=== PATIENT | female | born 1945 | race Caucasian/White ===

== ENCOUNTER 2019-11-06 14:44 | Emergency (ER) | payer MEDICARE, SELFPAY ==
--- NOTE | ~2019-11-06 | CT_ITS ---
EXAMINATION: CT brain wo [facility] EXAM DATE: 11/06/2019 17:32 INDICATION: Dizziness. TECHNIQUE: Spiral CT of the head was performed without contrast. Axial, coronal and sagittal images were reviewed. The dose-length product (DLP) for this examination was 605.33 mGy-cm. The exposure w as tailored according to patient size, and iterative reconstruction (ASIR) was used as additional dos e reduction technique. Comparison is made to prior examination from 01/06/2005. FINDINGS: Again there is moderate-sized left frontal region of encephalomalacia from prior insult. Th ere is overlying craniotomy. Mild microangiopathy and moderate cerebral atrophy. No obstructive hydro cephalus, extra-axial collections, acute intraparenchymal hemorrhage, mass or evidence of acute infar ction. There is mild to moderate ethmoid mucoperiosteal thickening. IMPRESSION: 1. Moderate-sized left frontal encephalomalacia. 2. Chronic age related findings. Reviewed, dictated and finalized at location A.
--- NOTE | ~2019-11-06 | XR_ITS ---
EXAMINATION: XR shoulder RT min 2V EXAM DATE: 11/06/2019 17:49 INDICATION: Fell one week ago, right shoulder anterior bruising. Limited range of motion. TECHNIQUE: The following right shoulder projections obtained: frontal projection with internal rotati on, frontal projection with external rotation, Grashey, and scapular Y view (4+ views). Comparison is made to prior examination from 03/22/2014. FINDINGS: There is acute closed posttraumatic fracture distal aspect of the right clavicle. Only mini mal displacement, near-anatomic alignment. There is an old right humeral neck fracture, has healed. N o dislocation. The soft tissue is unremarkable. IMPRESSION: 1. Acute right distal clavicular fracture. Reviewed, dictated and finalized at location A.
[2019-11-06 14:53] VITALS: BP 160/92; PULSE 85; RESP 18; TEMP 37.2; O2SAT 97
--- NOTE | 2019-11-06 14:59 | ECG_ITS ---
Measurements Intervals [place] Rate: 84 P: 85 IN: 111 QRS: 70 QRSD: 70 T: 75 QT: 364 QTc: 432 Interpretive Statements SINUS RHYTHM WITH SHORT IN INTERVAL POSSIBLE LEFT ATRIAL ENLARGEMENT BORDERLINE ST-T WAVE ABNORMALITY- DIFFUSE LEADS BASELINE ARTIFACT- I, II, III, AVR, AVL, AVF BORDERLINE ECG Electronically Signed On 11-06-2019 15:15:47 CDT by Josue Souza D.O.
[2019-11-06 15:18] LABS: Basophils Percent Auto 0.3 % (0.2-1.2); Eosinophils Absolute Auto 0.1 K/mm3 (0-0.3); Hemoglobin 15.9 g/dL (12.0-15.0); Immature Granulocyte Absolute 0.05 K/mm3 (0.00-0.031); Immature Granulocyte Percent A 0.5 % (0-0.5); Lymphocytes Absolute Auto 1.44 K/mm3 (0.9-3.2); Lymphocytes Percent Auto 14.7 % (18.3-44.2); Mean Corpuscular HGB Conc 33.1 g/dl (32-36); Mean Corpuscular Hemoglobin 31.5 pg (26-34); Mean Corpuscular Volume 95.2 fl (80-100); Mean Platelet Volume 10.7 fl (7.4-10.4); Monocytes Absolute Auto 0.7 K/mm3 (0.1-0.6); Monocytes Percent Auto 7.2 % (2.6-8.5); Neutrophils Absolute Auto 7.5 K/mm3 (1.3-6.7); Neutrophils Percent Auto 76.3 % (45.5-73.1); Platelet Count Result 214 k/mm3 (150-375); Red Blood Count 5.04 M/mm3 (4.2-5.4); Red Cell Distribution Width 13.5 % (11.5-14.5); White Blood Count 9.8 K/mm3 (4.5-10.0)
[2019-11-06 15:30] LABS: Anion Gap 8 mmol/L (8-16); Blood Urea Nitrogen 14 mg/dL (7-17); Calcium 10.3 mg/dL (8.4-10.2); Carbon Dioxide 26 mmol/L (22-30); Chloride 104 mmol/L (98-107); Estimated CRCL calculation 70 ml/min; Estimated Glomerular Filt Rate > 60; Glucose 130 mg/dL (65-105); Potassium 4.1 mmol/L (3.4-5.0); Sodium 138 mmol/L (137-145)
[2019-11-06 17:58] VITALS: BP 184/86; PULSE 81; RESP 18; O2SAT 100
[2019-11-06] MEDS: MECLIZINE HCL 25 MG TABLET PO (17:58)
--- NOTE | 2019-11-06 18:40 | ED.DIZZY ---
HPI - Dizziness General Chief Complaint: Dizziness Stated Complaint: dizziness, n/v Time Seen by Provider: 11/06/19 16:27 History of Present Illness HPI Narrative: Patient is a 74-year-old female who presents the ER with dizziness. Symptoms began last week. She was walking felt intense dizziness and felt against a wall striking her shoulder. The dizziness then subsided. She has had it recur a couple of times over the last week. It occurred worse today so she came in with her to be evaluated. Unsure if it is worse with going from sitting to standing or when turning her head. Cannot describe rotational nature or just unsteadiness. 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 Related Data Allergies Allergy/AdvReac Type Severity Reaction Status Date / Time codeine Allergy Unknown Unknown Verified 10/22/19 11:43 Review of Systems Review of Systems: ROS unobtainable: Yes unobtainable due to medical condition (Deafness) Constitutional: Constitutional: Denies chills, Denies fever(s) and Denies weakness ENT: Reports vertigo, Reports dizziness, Denies nasal congestion and Denies sore throat Cardiovascular: Cardiovascular: Denies chest pain and Denies rapid heart rate Respiratory: Respiratory: Denies cough and Denies dyspnea Gastrointestinal: Gastrointestinal: Denies abdominal pain, Denies diarrhea, Reports nausea and Denies vomiting PMFSH Past Medical History Medical History (Updated 11/06/19 @ 18:48 by Herber Lord MD) Fracture closed, femur, shaft (~02/2014) History of hemorrhagic stroke with residual hemiparesis Hypertension Hyperthyroidism Osteoporosis Right hemiparesis (~1979) Seizure disorder (~2004) Shoulder fracture Skin cancer Family History Family History (Updated 10/21/15 @ 23:19 by DOCTOR UNKNOWN) Father Family history of diabetes mellitus in first degree relative Sibling Family history of diabetes mellitus in first degree relative Mother Family history of coronary artery disease Family history of malignant neoplasm of kidney Other Cerebrovascular accident Family history of blood dyscrasia Family history of hearing loss Hypertension Social History Social History Smoking status: Current every day smoker Smoking end date: 03/25/86 Alcohol intake: never Exam Narrative: Exam Narrative: GENERAL: Well-appearing, well-nourished, and in no acute distress. HEAD: Normocephalic, atraumatic. EYES/EARS: PERRL and EOMI. Normal TM's w/o cerumen impaction CHEST: Clear to auscultation. No respiratory distress. HEART: Regular rate and rhythm. Normal peripheral pulses. EXTREMITIES: Normal range of motion. No edema. No tenderness over the clavicle or shoulder. Contracture of the right upper extremity. SKIN: Warm, dry, large amount of old bruising to right shoulder over the clavicle extending down to the anterior chest. NEURO: Alert and oriented x3. At neurologic baseline per . Mild slurred speech. PSYCH: Normal mood and affect. Course Course Emergency Course: Patient feels much better after receiving meclizine. Informed of results of x-ray of shoulder. Declined sling Vital Signs Vital signs: Vital Signs Temperature 98.9 F 11/06/19 14:53 Pulse Rate 85 11/06/19 14:53 Respiratory Rate 18 11/06/19 14:53 Blood Pressure 160/92 H 11/06/19 14:53 Pulse Oximetry 97 11/06/19 14:53 Temperature 98.9 F 11/06/19 14:53 Pulse Rate 81 11/06/19 17:58 Respiratory Rate 18 11/06/19 17:58 Blood Pressure 184/86 H 11/06/19 17:58 Pulse Oximetry 100 11/06/19 17:58 MDM - Dizziness Lab Data Result diagrams: 11/06/19 15:02 11/06/19 15:02 Labs: Lab Results 11/06/19 11/06/19 Range/Units 15:02 15:02 WBC 9.8 (4.5-10.0) K/mm3 RBC 5.04 (4.2-5.4) M/mm3 Hgb 15.9 H (12.0-15.0) g/dL Hct 48.0 H (37.0-47.0) % MCV
[2019-11-06 19:08] VITALS: BP 151/92; PULSE 85; RESP 14; TEMP 36.8; O2SAT 94
== END 2019-11-06 19:10 | disposition home or self-care (01) ==
PROVIDERS: Emergency Provider Emergency Medicine
DX: R42 Dizziness and giddiness (principal); S42.031A Displaced fracture of lateral end of right clavicle, initial encounter for closed fracture; I10 Essential (primary) hypertension; E03.9 Hypothyroidism, unspecified; M81.0 Age-related osteoporosis without current pathological fracture; Z85.828 Personal history of other malignant neoplasm of skin; I69.951 Hemiplegia and hemiparesis following unspecified cerebrovascular disease affecting right dominant side; Z87.891 Personal history of nicotine dependence; R94.31 Abnormal electrocardiogram [ECG] [EKG]; W01.198A Fall on same level from slipping, tripping and stumbling with subsequent striking against other object, initial encounter
CPT/HCPCS: 36415; 70450; 73030; 80048; 85025; 93005; 99284; A9270

== ENCOUNTER 2020-10-18 10:34 | Outpatient (CLI) | payer MEDICARE, SELFPAY ==
[2020-10-18 16:46] LABS: Basophils Percent Auto 0.4 % (0.2-1.2); Eosinophils Absolute Auto 0.2 K/mm3 (0-0.3); Eosinophils Percent Auto 2.6 % (0-4.4); Hematocrit 46.3 % (37.0-47.0); Immature Granulocyte Absolute 0.02 K/mm3 (0.00-0.031); Immature Granulocyte Percent A 0.3 % (0-0.5); Lymphocytes Absolute Auto 1.76 K/mm3 (0.9-3.2); Lymphocytes Percent Auto 25.8 % (18.3-44.2); Mean Corpuscular HGB Conc 32.4 g/dl (32-36); Mean Corpuscular Hemoglobin 31.3 pg (26-34); Mean Corpuscular Volume 96.5 fl (80-100); Mean Platelet Volume 11.4 fl (7.4-10.4); Monocytes Absolute Auto 0.7 K/mm3 (0.1-0.6); Neutrophils Absolute Auto 4.1 K/mm3 (1.3-6.7); Neutrophils Percent Auto 60.9 % (45.5-73.1); Platelet Count Result 208 k/mm3 (150-375); White Blood Count 6.8 K/mm3 (4.5-10.0)
[2020-10-18 17:02] LABS: Hemoglobin A1C 5.5 % (<5.7)
[2020-10-18 17:04] LABS: Alanine Aminotransferase 15 U/L (4-35); Albumin Level 4.3 g/dL (3.5-5.1); Alkaline Phosphatase 94 U/L (38-126); Anion Gap 10 mmol/L (8-16); Aspartate Amino Transferase 24 U/L (14-36); Bilirubin,Total 0.7 mg/dL (0.2-1.3); Blood Urea Nitrogen 15 mg/dL (7-17); Calcium 9.6 mg/dL (8.4-10.2); Carbon Dioxide 25 mmol/L (22-30); Chloride 105 mmol/L (98-107); Cholesterol 217 mg/dL (0-200); Estimated Glomerular Filt Rate > 60; Glucose 98 mg/dL (65-110); HDL Direct 54 mg/dL; Potassium 4.1 mmol/L (3.4-5.0); Sodium 140 mmol/L (137-145); Triglycerides 142 mg/dL (<150)
[2020-10-18 17:07] LABS: Phosphorus 3.2 mg/dL (2.5-4.5)
[2020-10-18 17:15] LABS: LDL Cholesterol Direct 108 mg/dL
[2020-10-18 17:17] LABS: Parathyroid Intact 55.9 pg/mL (7.5-53.5)
[2020-10-18 17:20] LABS: Free T4 Free Thyroxine 0.96 ng/mL (0.78-2.19); Vitamin D 25 Hydroxy 64.3 ng/mL
[2020-10-18 17:36] LABS: Thyroid Stimulating Hormone 0.251 uIU/mL (0.465-4.680)
[2020-10-21 14:35] LABS: Thyroid Stimulating Immunoglob <89 % baseline (<140)
== END 2020-10-18 10:35 | disposition home or self-care (01) ==
LOC: ANHWCLAB 10:40
PROVIDERS: Referring Provider Internal Medicine Endocrinology, Diabetes & Metabolism; Visit Provider Family Medicine
DX: E78.5 Hyperlipidemia, unspecified (principal); I69.359 Hemiplegia and hemiparesis following cerebral infarction affecting unspecified side; R41.89 Other symptoms and signs involving cognitive functions and awareness; I10 Essential (primary) hypertension; R73.9 Hyperglycemia, unspecified; E07.9 Disorder of thyroid, unspecified; E05.90 Thyrotoxicosis, unspecified without thyrotoxic crisis or storm; E04.1 Nontoxic single thyroid nodule; M81.0 Age-related osteoporosis without current pathological fracture
CPT/HCPCS: 36415; 80053; 80061; 82306; 82607; 83036; 83970; 84100; 84439; 84443; 84445; 85025

== ENCOUNTER 2020-10-26 12:23 | Outpatient (CLI) | payer MEDICARE, SELFPAY ==
--- NOTE | ~2020-10-26 | CT_ITS ---
EXAMINATION: CT soft tissue neck w con DATE: 10/26/2020 13:32 INDICATION: Right neck mass. TECHNIQUE: Computed tomography (CT) of the neck was performed with 75 mL Omnipaque-350 intravenous co ntrast. Automated exposure control and iterative reconstruction technique were employed. The dose-shayna gth product was 443.96 mGy-cm. COMPARISON: Thyroid ultrasound 07/28/2015 FINDINGS: Emphysema is noted. There is a skin marker overlying the right submandibular gland, which i s normal. There are stable nodules in the thyroid with previous benign biopsies. There is plaque in t he proximal internal carotid arteries with less than 50% stenosis relative to normal distal artery uziel men diameters. There is mucosal thickening in the paranasal sinuses. There is severe cervical spondyl osis. IMPRESSION: 1. No abnormal mass or lymphadenopathy in the patient's area of concern in right neck. Reviewed, dictated and finalized at location A. IMPRESSION: 1. No abnormal mass or lymphadenopathy in the patient's area of concern in righ t neck.
== END 2020-10-26 12:24 | disposition home or self-care (01) ==
LOC: ANHIMG 12:32
PROVIDERS: PCP Family Medicine; Visit Provider Nurse Practitioner Family
DX: R22.1 Localized swelling, mass and lump, neck (principal)
CPT/HCPCS: 70491; Q9967

== ENCOUNTER 2021-06-22 10:51 | Outpatient (CLI) | payer MEDICARE, SELFPAY ==
[2021-06-22 13:19] LABS: Albumin Level 4.6 g/dL (3.5-5.1); Anion Gap 10 mmol/L (8-16); Blood Urea Nitrogen 14 mg/dL (7-17); Carbon Dioxide 23 mmol/L (22-30); Chloride 108 mmol/L (98-107); Estimated Glomerular Filt Rate > 60; Glucose 94 mg/dL (65-110); Phosphorus 3.4 mg/dL (2.5-4.5); Sodium 141 mmol/L (137-145)
[2021-06-22 13:29] LABS: Parathyroid Intact 25.5 pg/mL (7.5-53.5)
[2021-06-22 13:36] LABS: Vitamin D 25 Hydroxy 80.5 ng/mL
[2021-06-25 08:19] LABS: Triiodothyronine T3 Free 3.1 pg/mL (2.3-4.2)
== END 2021-06-22 10:52 | disposition home or self-care (01) ==
LOC: ANHWCLAB 10:56
PROVIDERS: PCP Family Medicine; Referring Provider Internal Medicine Endocrinology, Diabetes & Metabolism; Visit Provider Internal Medicine Endocrinology, Diabetes & Metabolism
DX: E05.90 Thyrotoxicosis, unspecified without thyrotoxic crisis or storm (principal); M81.0 Age-related osteoporosis without current pathological fracture; E04.1 Nontoxic single thyroid nodule; R79.89 Other specified abnormal findings of blood chemistry
CPT/HCPCS: 36415; 80069; 82306; 83970; 84439; 84443; 84481

== ENCOUNTER 2021-10-04 11:57 | Outpatient (CLI) | payer MEDICARE, SELFPAY ==
[2021-10-04 13:15] LABS: Thyroid Stimulating Hormone 0.251 uIU/mL (0.465-4.680)
[2021-10-04 13:28] LABS: Free T4 Free Thyroxine 1.07 ng/mL (0.78-2.19)
[2021-10-07 11:38] LABS: Triiodothyronine T3 Free 3.6 pg/mL (2.3-4.2)
== END 2021-10-04 11:58 | disposition home or self-care (01) ==
LOC: ANHLAB 11:58
PROVIDERS: PCP Family Medicine; Visit Provider Internal Medicine Endocrinology, Diabetes & Metabolism
DX: E04.1 Nontoxic single thyroid nodule (principal); E05.90 Thyrotoxicosis, unspecified without thyrotoxic crisis or storm
CPT/HCPCS: 36415; 84439; 84443; 84481

== ENCOUNTER 2022-11-15 13:34 | Outpatient (CLI) | payer MEDICARE, SELFPAY ==
[2022-11-15 17:03] LABS: Albumin Level 4.5 g/dL (3.5-5.1); Anion Gap 9 mmol/L (8-16); Blood Urea Nitrogen 16 mg/dL (7-17); Calcium 9.8 mg/dL (8.4-10.2); Carbon Dioxide 22 mmol/L (22-30); Chloride 109 mmol/L (98-107); Estimated Glomerular Filt Rate > 60; Glucose 90 mg/dL (65-110); Phosphorus 3.6 mg/dL (2.5-4.5); Potassium 4.1 mmol/L (3.4-5.0); Sodium 140 mmol/L (137-145)
[2022-11-15 17:09] LABS: Parathyroid Intact 33.3 pg/mL (7.5-53.5)
[2022-11-15 17:15] LABS: Vitamin D 25 Hydroxy 56.8 ng/mL
== END 2022-11-15 13:35 | disposition home or self-care (01) ==
LOC: ANHWCLAB 13:35
PROVIDERS: PCP Family Medicine; Visit Provider Internal Medicine Endocrinology, Diabetes & Metabolism
DX: E05.90 Thyrotoxicosis, unspecified without thyrotoxic crisis or storm (principal); M81.0 Age-related osteoporosis without current pathological fracture; E04.1 Nontoxic single thyroid nodule; R79.89 Other specified abnormal findings of blood chemistry
CPT/HCPCS: 36415; 80069; 82306; 83970; 84439; 84443

== ENCOUNTER 2023-04-25 12:31 | Outpatient (CLI) | payer MEDICARE, SELFPAY ==
--- NOTE | ~2023-04-25 | DEXA_ITS ---
Bone Density Report Name: NERI ANDERSON Age: 78 Sex: Female Ethnicity: White Date of : 1945 Indication: postmenopausal; screening for osteoporosis; height loss; prior fracture; Referring Provider: DAVID, EDILMA Valentine Study: Bone densitometry was performed. Exam Date: April 25, 2023 Accession number: [id number] Bone Density: Region BMD T-score Z-score Classification AP Spine(L1-L4) 0.879 -1.5 0.9 Osteopenia Femoral Neck (Left) 0.532 -2.9 -0.7 Osteoporosis Total Hip (Left) 0.576 -3.0 -1.2 Osteoporosis World Health Organization criteria for BMD impression classify patients as: Normal (T-score at or above -1.0), Osteopenia (T-score between -1.0 and -2.5), or Osteoporosis (T-score at or below -2.5). 10-year Fracture Risk: FRAX not reported because: Some T-score for Spine Total or Hip Total or Femoral Neck at or below -2.5 Prior hip or vertebral fracture Clinical Information Provided by Patient: Have had a previous hip or vertebral fracture Has had a low trauma fracture Has used the following medications: Vitamin D Patient maximum height was 67.5 No regular weight bearing exercise Drinks caffeinated beverages Onset of menses at age 17 Number of children 2 Impression: The patient has established osteoporosis, based on the Left Total Hip T-score and the existence of a prior fracture. The patient has risk factors, including: previous fracture. Discussion: HIGH RISK OF FRACTURE. BONE DENSITY IS UNDESIRABLY LOW AT ONE OR MORE SKELETAL SITES, CONSISTENT WITH POSTMENOPAUSAL OSTEOPOROSIS. This patient's lowest T-score, in a patient who has previously fractured, meets the World Health Organization's (WHO) criteria for severe osteoporosis. In untreated patients, the risk of osteoporotic fracture increases approximately two-fold for each 1.0 SD decrease in T-score. Low bone density is not the only risk factor for fracture; also consider factors such as patient's age, frailty or poor health, risk of falling, risk of injury, previous osteoporotic fracture, family history of osteoporosis, cigarette smoking, low body weight, etc. Not everyone with low bone mineral density has osteoporosis; osteomalacia and other metabolic bone disorders should also be considered. Patients who have osteoporosis should be evaluated for specific diseases and conditions (secondary causes) that may cause or contribute to bone loss. The [place] [employer] Endocrinologists (AACE) and National Osteoporosis Foundation (NOF) recommend pharmacologic intervention for all postmenopausal women with a previous hip or vertebral fracture and a T-score in this range. The patient should follow a healthful lifestyle (good nutrition with adequate calcium and vitamin D, and appropriate weight-bearing exercise). Follow-Up: Consider a repeat BMD and Vertebral Fracture Assessment (VFA) exam in 2 years or sooner if medically necessary, to reassess this patient's status.
--- NOTE | ~2023-04-25 | MM_ITS ---
EXAMINATION: MM screening amrita BI w debo HISTORY: Screening TECHNIQUE: Craniocaudal and mediolateral oblique 3-D tomosynthesis images were obtained and synthetic 2-D images were generated. CAD analysis was submitted and interpreted. COMPARISON: Comparison to multiple prior studies sequentially, with oldest reviewed study dated 09/2015. BREAST PARENCHYMAL COMPOSITION: Not dense: There are scattered areas of fibroglandular density. FINDINGS: There is no evidence of suspicious mass, calcification, or architectural distortion to sugg est malignancy in either breast. There has been no suspicious interval change. IMPRESSION: 1. No mammographic evidence of malignancy. 2. Recommend routine screening mammography in one year. BI-RADS Category 1: Negative Reviewed, dictated and finalized at location A. NG TRIMMER
== END 2023-04-25 12:32 | disposition home or self-care (01) ==
PROVIDERS: PCP Family Medicine; Visit Provider Nurse Practitioner Family
DX: Z12.31 Encounter for screening mammogram for malignant neoplasm of breast (principal); M81.0 Age-related osteoporosis without current pathological fracture; Z78.0 Asymptomatic menopausal state
CPT/HCPCS: 77063; 77067; 77080

== ENCOUNTER 2023-11-14 14:34 | Outpatient (CLI) | payer MEDICARE, SELFPAY ==
[2023-11-14 15:09] LABS: Hematocrit 47.9 % (37.0-47.0); Hemoglobin 15.6 g/dL (12.0-15.0); Mean Corpuscular HGB Conc 32.6 g/dl (32-36); Mean Corpuscular Hemoglobin 31.5 pg (26-34); Mean Corpuscular Volume 96.8 fl (80-100); Mean Platelet Volume 10.7 fl (7.4-10.4); Platelet Count Result 208 k/mm3 (150-375); Red Blood Count 4.95 M/mm3 (4.2-5.4); Red Cell Distribution Width 13.7 % (11.5-14.5); White Blood Count 8.5 K/mm3 (4.5-10.0)
[2023-11-14 15:22] LABS: Alanine Aminotransferase 18 U/L (6-35); Albumin Level 4.8 g/dL (3.5-5.1); Alkaline Phosphatase 82 U/L (38-126); Anion Gap 10 mmol/L (4-12); Aspartate Amino Transferase 29 U/L (14-36); Bilirubin,Total 0.9 mg/dL (0.2-1.3); Blood Urea Nitrogen 15 mg/dL (7-17); Calcium 10.2 mg/dL (8.4-10.2); Carbon Dioxide 26 mmol/L (22-30); Chloride 105 mmol/L (98-107); Estimated Glomerular Filt Rate > 60; Glucose 98 mg/dL (65-110); Phosphorus 3.2 mg/dL (2.5-4.5); Potassium 3.9 mmol/L (3.4-5.0); Sodium 141 mmol/L (137-145)
[2023-11-14 17:41] LABS: Free T4 Free Thyroxine 0.91 ng/mL (0.78-2.19); Vitamin D 25 Hydroxy 63.6 ng/mL
== END 2023-11-14 14:35 | disposition home or self-care (01) ==
LOC: ANHLAB 14:38
PROVIDERS: PCP Family Medicine; Visit Provider Internal Medicine Endocrinology, Diabetes & Metabolism
DX: E04.1 Nontoxic single thyroid nodule (principal); E05.90 Thyrotoxicosis, unspecified without thyrotoxic crisis or storm; M81.0 Age-related osteoporosis without current pathological fracture; R79.89 Other specified abnormal findings of blood chemistry; E78.5 Hyperlipidemia, unspecified; I69.359 Hemiplegia and hemiparesis following cerebral infarction affecting unspecified side
CPT/HCPCS: 36415; 80053; 80069; 82306; 84439; 84443; 85027

== ENCOUNTER 2024-08-06 12:49 | Outpatient (CLI) | payer MEDICARE, SELFPAY ==
--- NOTE | ~2024-08-06 | US_ITS ---
Thyroid ultrasound. Clinical History: Thyrotoxicosis Findings: Real-time sonography of the thyroid gland was performed. The right lobe measures 5.4 x 1.8 x 2.1 cm. The left lobe measures 5.4 x 3.3 x 2.8 cm. The isthmus is 3 mm in AP diameter. There is a 2.4 x 1.8 x 1.9 cm heterogeneous solid nodule at the right lower pole. The left thyroid lobe may be essentially entirely encompassed by a large nodule. Impression: 2.4 x 1.8 x 1.9 cm TR-4 right thyroid lobe nodule. This appears increased as compared to prior CT sca n. Although most likely benign, consider FNA to establish a histologic diagnosis. Enlarged left thyroid lobe which may be entirely encompassed by 5.4 cm nodule. This is similar in xavier earance to prior CT scan from 10/26/2020.. Reviewed, dictated and finalized at [facility]. Impression: 2.4 x 1.8 x 1.9 cm TR-4 right thyroid lobe nodule. This appears increased as co mpared to prior CT scan. Although most likely benign, consider FNA to establish a histologic diagnosis. Enlarged left thyroid lobe which may be entirely encompassed by 5.4 cm nodule. This is similar in appearance to prior CT scan from 10/26/2020..
--- OUTSIDE RECORDS SUMMARY | 2024-08-06 13:03 | XMS_ITS | Continuity of Care Document ---
Author Organization [facility] Address [address] [place] [address] Phone Care Team Providers Care Supplier Quality Name Role Phone Lance Klein MD Unavailable Unavailable Procedures Procedure Date Visual Field Examination(s) Vision Svcs Frames Purchases Progressive Lens, Plastic Tax - Medical Eye Exam & Treatment Refraction Advance Directives Directive Yes / No Effective Date File Name No Information Encounters Encounter Description Practice Location Reason(s) For Visit Diagnoses Date Provider Providers Copied on Encounter [facility], [address], [place], [place], [id number], [place] tel:[phone] [facility] No Information 7 Ernie Lucas. [address] [facility] [facility] [place], [id number], [place]. tel:[phone] Referring Provider: Lanec Quiroz, [address], [place], [address]. tel:[phone] [facility], [address], [place], [place], [id number], [place] tel:[phone] [facility] No Information [address] [facility] . [address], [address], [place], [place], [id number], [place]. tel:[phone] Referring Provider: Lance Quiroz, [address], [place], [address]. tel:[phone] desir Provider: Juana Lama, [address] [facility], [place], [address]. tel:[phone] [facility], [address], [place], [place], [id number], [place] tel:[phone] [facility] No Information [address] Ernie Lucas. [address] [facility] [place], [place], [id number], [place]. tel:[phone] Family History Family Member Type Diagnosis Age At Onset No Information Payers Payer name Insurance type Covered green party ID Authoriza tisangeetha(s) [place] [id number] Social History Type Description Quantity Date Captured Comments Sex Female Smoking Status No Information Chief Complaint And Reason For Visit No Information Reason For Referral Reason For Referral No Information History Of Present Illness Encounter Date Complaint History Of Prese nt Illness No Information Functional Status Date Functional Assessmen t No Information Instructions Date Instruction Additional Infor mation No Information Assessments Type Assessment Date No Information Patient Care Teams Name Effective Dates (start - stop) Status Members No Information
[2024-08-06 15:24] LABS: Alanine Aminotransferase 22 U/L (6-35); Albumin Level 4.5 g/dL (3.5-5.1); Alkaline Phosphatase 82 U/L (38-126); Anion Gap 9 mmol/L (4-12); Aspartate Amino Transferase 32 U/L (14-36); Blood Urea Nitrogen 15 mg/dL (7-17); Calcium 10.2 mg/dL (8.4-10.2); Carbon Dioxide 23 mmol/L (22-30); Chloride 109 mmol/L (98-107); Estimated Glomerular Filt Rate > 60; Glucose 90 mg/dL (65-110); Sodium 141 mmol/L (137-145)
[2024-08-06 17:20] LABS: Vitamin D 25 Hydroxy 81.4 ng/mL
[2024-08-13 01:14] LABS: Protein, Total 7.5 g/dL (6.1-8.1)
[2024-08-13 20:17] LABS: Albumin 4.5 g/dL (3.8-4.8); Alpha 1 Globulin 0.4 g/dL (0.2-0.3); Alpha 2 Globulin 0.9 g/dL (0.5-0.9); Beta 1 Globulin 0.5 g/dL (0.4-0.6); Gamma Globulin 0.9 g/dL (0.8-1.7)
== END 2024-08-06 12:50 | disposition home or self-care (01) ==
PROVIDERS: PCP Family Medicine; Visit Provider Internal Medicine Endocrinology, Diabetes & Metabolism
DX: M81.0 Age-related osteoporosis without current pathological fracture (principal); E05.90 Thyrotoxicosis, unspecified without thyrotoxic crisis or storm; E04.1 Nontoxic single thyroid nodule
CPT/HCPCS: 36415; 76536; 80053; 82306; 84155; 84165; 84443